=== PATIENT | male | born 1935 | race Caucasian/White ===

== ENCOUNTER 2018-02-28 08:52 | Emergency (ER) | payer MEDICARE, BC ==
[~2018-02-28] VITALS: Ht 182.9 cm; Wt 100.0 kg
[~2018-02-28 08:52] MED LIST: ASPI-611; OMEP-84 PO
[2018-02-28] MEDS ORDERED: HYDROmorphone 1 mg/ml syringe IM ONE ×2 (10:30→11:25)
[2018-02-28] MEDS ORDERED: ondansetron 4mg rapidly disintigrating tab PO ONE (10:30)
[2018-02-28] MEDS ORDERED: ketorolac trometh inj. 60 MG/2 ML VIAL IM ONE (10:35)
[2018-02-28] MEDS ORDERED: CYCL-1 PO (12:45)
[2018-02-28] MEDS ORDERED: HYDR-565 PO (12:45)
[2018-02-28] MEDS ORDERED: diazepam 5mg tablet PO ONE (13:00)
[2018-02-28 13:02] VITALS: BP 130/70
== END 2018-02-28 13:04 | disposition home or self-care (01) ==
LOC: ER 08:53
DX: M54.5 Low back pain (principal); I48.91 Unspecified atrial fibrillation; Z95.0 Presence of cardiac pacemaker; Z96.653 Presence of artificial knee joint, bilateral
CPT/HCPCS: 96372; 99284; J1170; J1885

== ENCOUNTER 2019-01-17 14:45 | Inpatient (IN) | payer MEDICARE, BC ==
[~2019-01-17] VITALS: Ht 182.9 cm; Wt 97.0 kg
[~2019-01-17 14:45] MED LIST changes: +CYCL-1 PO
[2019-01-17 15:27] LABS: BASOPHILS % (AUTO) 0.4 % (0-1); EOSINOPHILS # (AUTO) 0.3 X10'3 (0-0.9); EOSINOPHILS % (AUTO) 3.4 % (0-6); HEMATOCRIT 43.1 % (42.0-52.0); HEMOGLOBIN 14.5 g/dl (14.0-17.9); LYMPHOCYTES # (AUTO) 1.2 X10'3 (1.1-4.8); LYMPHOCYTES % (AUTO) 15.6 % (21-51); MEAN CORPUSCULAR HEMOGLOBIN 31.5 PG (27.0-31.0); MEAN CORPUSCULAR HGB CONC 33.7 g/dL (33.0-36.5); MEAN CORPUSCULAR VOLUME 93.7 FL (78-98); MEAN PLATELET VOLUME 8.5 FL (7.4-10.4); MONOCYTES # (AUTO) 0.8 X10'3 (0-0.9); MONOCYTES % (AUTO) 10.4 % (2-12); NEUTROPHILS # (AUTO) 5.3 X10'3 (1.8-7.7); NEUTROPHILS % (AUTO) 70.2 % (42-75); PLATELET COUNT 196 X10'3 (140-440); RED CELL DISTRIBUTION WIDTH 13.3 % (11.5-14.5); WHITE BLOOD COUNT 7.5 X10'3 (4.5-11.0)
[2019-01-17] MEDS ORDERED: nitroGLYCERIN 1gm ointment UD TP ONE (15:30)
[2019-01-17 15:43] LABS: ALANINE AMINOTRANSFERASE 19 U/L (12-78); ALBUMIN 3.3 G/DL (3.4-5.0); ALBUMIN/GLOBULIN RATIO 0.9 (1.1-1.5); ALKALINE PHOSPHATASE 86 IU/L (46-116); ANION GAP 8 (8-16); ASPARTATE AMINO TRANSFERASE 15 U/L (10-37); BILIRUBIN,TOTAL 0.7 MG/DL (0.1-1.0); BLOOD UREA NITROGEN 23 MG/DL (7-18); BUN/CREATININE RATIO 18.5 (5.4-32.0); CHLORIDE 106 MMOL/L (99-107); CREATININE 1.24 MG/DL (0.60-1.10); GLUCOSE 116 MG/DL (70-104); POTASSIUM 4.1 MMOL/L (3.5-5.1); SODIUM 140 MMOL/L (135-145); TOTAL CARBON DIOXIDE 25.9 MMOL/L (24-32); TOTAL PROTEIN 6.8 G/DL (6.4-8.2); eGFR 56 ML/MIN
[2019-01-17] MEDS ORDERED: DICL50TA8 PO (16:15)
[2019-01-17] MEDS ORDERED: ROSU5TAB12 PO (16:15)
[2019-01-17] MEDS ORDERED: CALC-159 PO (16:15)
[2019-01-17] MEDS ORDERED: FISH12002 PO (16:15)
[2019-01-17] MEDS ORDERED: WARF7.5T6 PO (16:15)
[2019-01-17] MEDS ORDERED: AMLO5TAB16 PO (16:15)
[2019-01-17] MEDS ORDERED: FURO40TA4 PO (16:15)
[2019-01-17] MEDS ORDERED: CHOL10002 PO (16:15)
[2019-01-17] MEDS ORDERED: ondansetron/PF 4mg/2ml inj IV PRN (17:20)
[2019-01-17] MEDS ORDERED: acetaminophen 325mg tablet PO PRN (17:20)
[2019-01-17] MEDS ORDERED: ipratropium/albuterol 3ml nebule NEB PRN (17:20)
[2019-01-17] MEDS ORDERED: mag hydrox/Alum hydrox/simeth 30ml oral suspension PO PRN (17:20)
[2019-01-17] MEDS ORDERED: HYDROcodone/acetaminophen 5mg/325mg tablet PO PRN (17:20)
[2019-01-17] MEDS ORDERED: docusate sod 100mg capsule PO PRN (17:20)
[2019-01-17] MEDS ORDERED: morphine 2 MG/ML inj. syringe IV PRN ×2 (17:20)
[2019-01-17] MEDS ORDERED: magnesium 4gm in 100ml NS 100 ML IV PRN (17:25)
[2019-01-17] MEDS ORDERED: potassium Cl 20 mEq SR tablet PO PRN ×2 (17:25)
[2019-01-17] MEDS ORDERED: potassium CL 10mEq/100ml bag 100 ML IV PRN (17:25)
--- NOTE | 2019-01-17 18:02 | NUR ---
PT COMPLETED PROCEDURE/ PAIN INCREASE WITH MOVEMENT, MORPHINE ADMINISTERED, X RAY AT BED SIDE HR 78, RR 24.
[2019-01-17] MEDS: HYDROcodone/acetaminophen 10/325mg tab PO PRN ×2 (18:08→22:03)
--- NOTE | 2019-01-17 18:10 | NUR ---
POSITIONED PT IN BED WITH HEAD ALL THE WAY UP AND PILLOW, URINAL PROVIDED, DISCARDED 600 CC CLEAR STRAW URINE.
[2019-01-17 18:31] LABS: GLUCOSE,BODY FLUID 108 MG/DL; TOTAL PROTEIN,BODY FLUID 4.1 G/DL
--- NOTE | 2019-01-17 18:34 | NUR ---
I have received report from Vincent ALICIA in the ED and had the opportunity to ask questions and awaiting arrival of patient to he PCU unit.
--- NOTE | 2019-01-17 18:55 | NUR ---
Patient arrived to the PCU unit at this time into room 3025H with his at bedside with him. He was able to ambulate from the gurney to the bed with standby assistance. He is alert and oriented and able to make his needs known. Vitals are stable. He was shown how to use the call light system. All safety precautions in place. Will continue to monitor.
[2019-01-17 19:00] VITALS: BP 118/78
[2019-01-17 19:20] LABS: BFAPPEAR CLOUDY; BFCOLOR AMBER; BFVOLUME 53 ML
[2019-01-17 19:37] LABS: BF RBC COUNT 8425 /CU MM; BF WBC COUNT 660 /CU MM (0-1000)
[2019-01-17 19:41] LABS: EOSINOPHILS,BODY FLUID 2 %; LYMPHOCYTES,BODY FLUID 66 %; MONOCYTES,BODY FLUID 26 %; NEUTROPHILS,BODY FLUID 6 %
[2019-01-17] MEDS ORDERED: furosemide 10 MG/1 ML 10ml inj IV SCH (20:00)
[2019-01-17] MEDS: calcium carbonate/vitamin D3 tablet PO SCH (20:47)
[2019-01-17] MEDS: furosemide 40mg/4ml inj IV SCH (20:47)
[2019-01-17] MEDS ORDERED: warfarin 7.5mg tablet PO ONE (21:00)
--- NOTE | 2019-01-17 21:00 | NUR ---
Call made to pharmacy regarding patient's Coumadin because patient states that he usually takes his in the morning and already took his dose at home this morning. Pharmacist advised not to give the bedtime dose and current INR was reviewed. It was retimed and will just be given tomorrow night.
[2019-01-17 22:00] VITALS: BP 116/66
[2019-01-18] VITALS (7 sets, daily range): BP systolic 100–119; BP diastolic 50–64
--- NOTE | 2019-01-18 03:09 | NUR ---
Orientee documentation: I have reviewed and agree with all interventions, assessments performed and documented by Marissa ALICIA. Orientee Medication Administration: For this medication-pass time frame, all medication were reviewed, dispensed, administered and documented per hospital policy by Marissa ALICIA.
[2019-01-18 03:54] LABS: BASOPHILS % (AUTO) 0.3 % (0-1); EOSINOPHILS # (AUTO) 0.2 X10'3 (0-0.9); EOSINOPHILS % (AUTO) 2.7 % (0-6); HEMATOCRIT 43.2 % (42.0-52.0); HEMOGLOBIN 14.5 g/dl (14.0-17.9); LYMPHOCYTES # (AUTO) 0.9 X10'3 (1.1-4.8); LYMPHOCYTES % (AUTO) 9.7 % (21-51); MEAN CORPUSCULAR HEMOGLOBIN 31.5 PG (27.0-31.0); MEAN CORPUSCULAR HGB CONC 33.4 g/dL (33.0-36.5); MEAN CORPUSCULAR VOLUME 94.3 FL (78-98); MEAN PLATELET VOLUME 9.2 FL (7.4-10.4); MONOCYTES # (AUTO) 0.9 X10'3 (0-0.9); MONOCYTES % (AUTO) 9.7 % (2-12); NEUTROPHILS # (AUTO) 6.9 X10'3 (1.8-7.7); NEUTROPHILS % (AUTO) 77.6 % (42-75); PLATELET COUNT 190 X10'3 (140-440); RED BLOOD COUNT 4.59 X10'6 (4.70-6.10); RED CELL DISTRIBUTION WIDTH 13.4 % (11.5-14.5); WHITE BLOOD COUNT 8.8 X10'3 (4.5-11.0)
[2019-01-18 04:07] LABS: ALANINE AMINOTRANSFERASE 17 U/L (12-78); ALKALINE PHOSPHATASE 77 IU/L (46-116); ANION GAP 5 (8-16); ASPARTATE AMINO TRANSFERASE 16 U/L (10-37); BILIRUBIN,TOTAL 0.7 MG/DL (0.1-1.0); BLOOD UREA NITROGEN 24 MG/DL (7-18); BUN/CREATININE RATIO 17.3 (5.4-32.0); CALCIUM 8.3 MG/DL (8.5-10.1); CHLORIDE 103 MMOL/L (99-107); CREATININE 1.39 MG/DL (0.60-1.10); GLUCOSE 117 MG/DL (70-104); POTASSIUM 3.8 MMOL/L (3.5-5.1); SODIUM 140 MMOL/L (135-145); TOTAL PROTEIN 6.1 G/DL (6.4-8.2); eGFR 49 ML/MIN
[2019-01-18 04:09] LABS: CHOL/HDL RATIO 2.1 (0.00-4.99); CHOLESTEROL 105 MG/DL (0-200); HDL CHOLESTEROL 51 MG/DL (35-60); LDL CHOLESTEROL 38 MG/DL (50-100); MAGNESIUM 1.7 MG/DL (1.5-2.4); TRIGLYCERIDES 105 MG/DL (20-135)
[2019-01-18] MEDS: HYDROcodone/acetaminophen 10/325mg tab PO PRN ×2 (05:41→12:35)
--- NOTE | 2019-01-18 06:21 | NUR ---
Problems reprioritized. Patient report given, questions answered & plan of care reviewed with Ysabel ALICIA and Ruel ALICIA.
--- NOTE | 2019-01-18 06:35 | NUR ---
Patient in room PCU 3027. I have received report from Sandra ALICIA and had the opportunity to ask questions and assume patient care. Patient awake in bed with no complaints at this time. All immediate needs met.
--- NOTE | 2019-01-18 06:39 | NUR ---
Patient in room PCU 3027. I have received report from Sandra ALICIA and had the opportunity to ask questions and assume patient care.
[2019-01-18] MEDS ORDERED: non-formulary drug (Fish Oil/Borage/Flax/Om3,6,9#1 (Omega 3-6-9 1,200 mg Softgel) 1 CAP) PO SCH (08:00)
[2019-01-18] MEDS: furosemide 40mg/4ml inj IV SCH ×2 (08:08→19:14)
[2019-01-18] MEDS: pantoprazole 40mg Tablet.DR PO SCH (08:08)
[2019-01-18] MEDS: atorvastatin 20mg tablet PO SCH (08:09)
[2019-01-18] MEDS: vitamin D (cholecalciferol) 1,000 unit tablet PO SCH (08:09)
[2019-01-18] MEDS: calcium carbonate/vitamin D3 tablet PO SCH ×2 (08:09→19:14)
[2019-01-18] MEDS ORDERED: pneumococcal 23-VAL P-sac vacc 25 mcg/0.5ml vial IMVAC ONE (10:00)
--- NOTE | 2019-01-18 10:57 | NUR ---
WOUND INFECTION EDUCATION PROVIDED BY WOUND CARE 1. Patient instructed to call their primary doctor, or go the ED immediately if any of the following symptoms occur: * Increased pain in wound * Increase in drainage from the wound * Redness in the skin surrounding the wound * Warmth in the skin surrounding the wound * Bleeding from the wound * Temperature of 101 or greater 2. If any of these occur while in the hospital tell a nurse immediately. Addendum: 01/18/19 at 1057 by Giana Charles RN Amended: Links added.
--- NOTE | 2019-01-18 18:42 | NUR ---
Patient in room PCU 3027. I have received report from Ysabel ALICIA and had the opportunity to ask questions and assume patient care.
--- NOTE | 2019-01-18 18:42 | NUR ---
Problems reprioritized. Patient report given, questions answered & plan of care reviewed with Carmelina/Marissa RN. Patient stable at transfer of care.
[2019-01-19 02:00] VITALS: BP 116/61
--- NOTE | 2019-01-19 06:12 | NUR ---
Orientee documentation: I have reviewed and agree with all interventions, assessments performed and documented by Marissa ALICIA . Medication Administration: For this medication-pass time frame, all medication were reviewed, dispensed, administered and documented per hospital policy by Marissa ALICIA .
--- NOTE | 2019-01-19 06:16 | NUR ---
Problems reprioritized. Patient report given, questions answered & plan of care reviewed with Ruel ALICIA and Ysabel ALICIA.
[2019-01-19 06:30] LABS: ALANINE AMINOTRANSFERASE 16 U/L (12-78); ALBUMIN 2.8 G/DL (3.4-5.0); ALBUMIN/GLOBULIN RATIO 0.8 (1.1-1.5); ALKALINE PHOSPHATASE 69 IU/L (46-116); ANION GAP 6 (8-16); ASPARTATE AMINO TRANSFERASE 14 U/L (10-37); BASOPHILS % (AUTO) 0.3 % (0-1); BILIRUBIN,TOTAL 1.1 MG/DL (0.1-1.0); BLOOD UREA NITROGEN 23 MG/DL (7-18); BUN/CREATININE RATIO 17.7 (5.4-32.0); CALCIUM 8.4 MG/DL (8.5-10.1); CHLORIDE 101 MMOL/L (99-107); EOSINOPHILS # (AUTO) 0.4 X10'3 (0-0.9); EOSINOPHILS % (AUTO) 3.9 % (0-6); GLUCOSE 121 MG/DL (70-104); HEMATOCRIT 43.8 % (42.0-52.0); HEMOGLOBIN 14.9 g/dl (14.0-17.9); LYMPHOCYTES # (AUTO) 1.1 X10'3 (1.1-4.8); LYMPHOCYTES % (AUTO) 11.6 % (21-51); MAGNESIUM 1.7 MG/DL (1.5-2.4); MEAN CORPUSCULAR HEMOGLOBIN 31.5 PG (27.0-31.0); MEAN CORPUSCULAR VOLUME 92.5 FL (78-98); MEAN PLATELET VOLUME 9.1 FL (7.4-10.4); MONOCYTES % (AUTO) 10.2 % (2-12); PLATELET COUNT 208 X10'3 (140-440); POTASSIUM 3.5 MMOL/L (3.5-5.1); RED BLOOD COUNT 4.74 X10'6 (4.70-6.10); RED CELL DISTRIBUTION WIDTH 13.3 % (11.5-14.5); SODIUM 137 MMOL/L (135-145); TOTAL CARBON DIOXIDE 29.9 MMOL/L (24-32); TOTAL PROTEIN 6.2 G/DL (6.4-8.2); WHITE BLOOD COUNT 9.4 X10'3 (4.5-11.0); eGFR 53 ML/MIN
--- NOTE | 2019-01-19 06:30 | NUR ---
Patient in room PCU 3027. I have received report from Chanda RN and Marissa RN and had the opportunity to ask questions and assume patient care.
[2019-01-19 07:00] VITALS: BP 116/63
[2019-01-19] MEDS ORDERED: furosemide 40mg/4ml inj IV SCH (08:00)
[2019-01-19] MEDS: pantoprazole 40mg Tablet.DR PO SCH (08:17)
[2019-01-19] MEDS: atorvastatin 20mg tablet PO SCH (08:17)
[2019-01-19] MEDS: calcium carbonate/vitamin D3 tablet PO SCH (08:17)
[2019-01-19] MEDS: vitamin D (cholecalciferol) 1,000 unit tablet PO SCH (08:17)
[2019-01-19] MEDS ORDERED: amox tr/potassium clavulanate 875/125mg TAB PO SCH (08:30)
[2019-01-19] MEDS ORDERED: POTA20TA10 PO (10:19)
[2019-01-19 11:00] VITALS: BP 125/69
--- NOTE | 2019-01-19 13:05 | NUR ---
V/S 125/69, 91%, 18, 64, 97.7 Stable for discharge per MD orders. Discharge instructions given to patient and ; all inquiries answered. New prescriptions delivered to bedside through [facility]. Wound photos re-taken prior to discharge. PIV discontinued; cannula intact. Telemetry monitoring discontinued. All belongings including home meds sent home with patient. Assisted to private vehicle via wheelchair accompanied by .
== END 2019-01-19 13:05 | disposition home or self-care (01) | DRG 291 ==
LOC: ER 14:46 → PCU 3S 18:50 → CMPBEDREQ 19:42
PROVIDERS: ADMIT Family Medicine; ATTEND Family Medicine
PROC: 0W9B3ZZ Drainage of Left Pleural Cavity, Percutaneous Approach (ICD-10-PCS; principal; 2019-01-17)
PROC: 3E0234Z Introduction of Serum, Toxoid and Vaccine into Muscle, Percutaneous Approach (ICD-10-PCS; 2019-01-18)
DX: I50.31 Acute diastolic (congestive) heart failure (principal); N17.0 Acute kidney failure with tubular necrosis; J91.8 Pleural effusion in other conditions classified elsewhere; I48.91 Unspecified atrial fibrillation; Z96.653 Presence of artificial knee joint, bilateral; Z96.619 Presence of unspecified artificial shoulder joint; N18.3 Chronic kidney disease, stage 3 (moderate); R91.8 Other nonspecific abnormal finding of lung field; Z23 Encounter for immunization; Z79.01 Long term (current) use of anticoagulants; Z80.0 Family history of malignant neoplasm of digestive organs; Z87.891 Personal history of nicotine dependence; Z95.0 Presence of cardiac pacemaker; Z98.1 Arthrodesis status; Z79.899 Other long term (current) drug therapy
CPT/HCPCS: 32555; 36415; 71045; 71046; 71250; 80053; 80061; 82945; 82948; 83605; 83735; 83880; 84157; 84484; 85025; 85610; 87040; 87070; 87081; 89051; 90732; 93005; 93306; 94760; 96374; 99285; G0378; J1940; J2270

== ENCOUNTER 2019-01-27 07:26 | Inpatient (IN) | payer MEDICARE, BC ==
[~2019-01-27] VITALS: Ht 182.9 cm; Wt 90.9 kg
[~2019-01-27 07:26] MED LIST changes: +AMLO5TAB16 PO; -ASPI-611; +CALC-159 PO; +CHOL10002 PO; -CYCL-1 PO; +FISH12002 PO; +FURO40TA4 PO; +POTA20TA10 PO; +ROSU5TAB12 PO; +WARF7.5T6 PO
--- NOTE | 2019-01-27 07:59 | NUR ---
PT STATES HE HAS HAD A COUGH WITH YELLOW SPUTUM STRTING AFTER PLURACENTSIS 01/17
[2019-01-27] MEDS ORDERED: HYDROcodone/acetaminophen 10/325mg tab PO ONE (08:10)
[2019-01-27 08:34] LABS: BASOPHILS % (AUTO) 0.4 % (0-1); EOSINOPHILS # (AUTO) 0.4 X10'3 (0-0.9); HEMATOCRIT 44.2 % (42.0-52.0); HEMOGLOBIN 14.8 g/dl (14.0-17.9); MEAN CORPUSCULAR HEMOGLOBIN 31.3 PG (27.0-31.0); MEAN CORPUSCULAR HGB CONC 33.4 g/dL (33.0-36.5); MEAN CORPUSCULAR VOLUME 93.6 FL (78-98); MEAN PLATELET VOLUME 8.9 FL (7.4-10.4); MONOCYTES # (AUTO) 1.3 X10'3 (0-0.9); MONOCYTES % (AUTO) 10.9 % (2-12); NEUTROPHILS # (AUTO) 9.3 X10'3 (1.8-7.7); NEUTROPHILS % (AUTO) 77.7 % (42-75); PLATELET COUNT 171 X10'3 (140-440); RED BLOOD COUNT 4.73 X10'6 (4.70-6.10); RED CELL DISTRIBUTION WIDTH 13.2 % (11.5-14.5)
[2019-01-27 08:40] LABS: CLARITY,URINE CLEAR (Clear); GLUCOSE, URINE NEGATIVE (Neg); KETONES,URINE NEGATIVE (Neg); LEUKOCYTE ESTERASE ,URINE NEGATIVE (Neg); NITRITES, URINE NEGATIVE (Neg); OCCULT BLOOD,URINE TRACE-INTACT (Neg); PH,URINE 5.5 (4.8-8.0); PROTEIN,URINE NEGATIVE (Neg); UROBILINOGEN,URINE 0.2 E.U/dL (0.2-1.0)
[2019-01-27 08:43] LABS: COLOR,URINE STRAW (Yellow); UA COLLECTION TYPE CLN CATCH MIDSTREAM
[2019-01-27 08:46] LABS: BACTERIA,URINE NONE SEEN /HPF (Neg); MUCUS STRANDS NONE SEEN /LPF (Neg); RBC,URINE 0-2 /HPF (0-2); SQUAMOUS EPITHELIAL CELL,UR NONE SEEN /LPF (FEW); WBC,URINE NONE SEEN /HPF (0-4)
[2019-01-27 08:54] LABS: ALANINE AMINOTRANSFERASE 18 U/L (12-78); ALBUMIN/GLOBULIN RATIO 0.8 (1.1-1.5); ALKALINE PHOSPHATASE 80 IU/L (46-116); ANION GAP 5 (8-16); ASPARTATE AMINO TRANSFERASE 11 U/L (10-37); BILIRUBIN,TOTAL 0.8 MG/DL (0.1-1.0); BLOOD UREA NITROGEN 20 MG/DL (7-18); BUN/CREATININE RATIO 13.5 (5.4-32.0); CALCIUM 8.6 MG/DL (8.5-10.1); CHLORIDE 99 MMOL/L (99-107); CREATININE 1.48 MG/DL (0.60-1.10); GLUCOSE 119 MG/DL (70-104); POTASSIUM 4.5 MMOL/L (3.5-5.1); SODIUM 134 MMOL/L (135-145); TOTAL CARBON DIOXIDE 29.9 MMOL/L (24-32); eGFR 46 ML/MIN
--- NOTE | 2019-01-27 09:22 | NUR ---
PATIENT TO RADIOLOGY.
--- NOTE | 2019-01-27 09:36 | NUR ---
CALL PLACED TO LAB RE PT/INR. THEY ARE NOT ABLE TO FIND THE BLUE TOP BLOOD VILE TO RUN THE TEST. BRENDA FROM LAB AT TO RE DRAW. LINDA NOTIFIED
--- NOTE | 2019-01-27 10:54 | NUR ---
patient desats with RA 85-86%,denies chest pain.Arron ABBOTT at bedside.
[2019-01-27] MEDS ORDERED: BUDE10.2 INH (11:34)
[2019-01-27] MEDS ORDERED: COU7.5T PO (12:16)
[2019-01-27] MEDS ORDERED: heparin 10,000 units/1 ML INJ IV PRN (12:35)
[2019-01-27] MEDS ORDERED: acetaminophen 325mg tablet PO PRN ×2 (12:35)
[2019-01-27] MEDS ORDERED: heparin 10,000 units/1 ML INJ IV ONE (12:35)
[2019-01-27] MEDS ORDERED: magnesium 2GM in 50ml NS 50 ML IV PRN (12:35)
[2019-01-27] MEDS ORDERED: potassium Cl 20 mEq SR tablet PO PRN ×2 (12:35)
[2019-01-27] MEDS ORDERED: magnesium Cl slow-release 64mg tablet PO PRN (12:35)
[2019-01-27] MEDS ORDERED: morphine 2 MG/ML inj. syringe IV PRN (12:35)
[2019-01-27] MEDS ORDERED: potassium CL 10mEq/100ml bag 100 ML IV PRN ×2 (12:35)
[2019-01-27] MEDS ORDERED: magnesium 4gm in 100ml NS 100 ML IV PRN (12:35)
[2019-01-27] MEDS ORDERED: ondansetron/PF 4mg/2ml inj IV PRN (12:35)
[2019-01-27] MEDS ORDERED: iohexol 350MG/ML 100ml bottle IV ONE (12:46)
--- NOTE | 2019-01-27 13:01 | NUR ---
pt to ct.
[2019-01-27] MEDS: heparin 25,000 UNIT/250ml bag 250 ML IV SCH ×2 (13:14→23:43)
[2019-01-27] MEDS: normal saline 1000ml 1,000 ML IV SCH (13:19)
--- NOTE | 2019-01-27 13:33 | NUR ---
Patient in room . I have received report from Ravi ALICIA in ED and had the opportunity to ask questions and assume patient care.
[2019-01-27] MEDS: HYDROcodone/acetaminophen 5mg/325mg tablet PO PRN ×2 (13:35→21:13)
--- NOTE | 2019-01-27 13:50 | NUR ---
Pt arrived on the floor, alert & oriented
[2019-01-27 14:27] VITALS: BP 118/65
[2019-01-27] MEDS: albuterol 2.5 MG/3 ML nebule NEB SCH ×2 (15:00→21:05)
[2019-01-27] MEDS ORDERED: LIDOcaine 1%/PF 5ML 10 MG/ML VIAL SQ ONE (15:05)
[2019-01-27] MEDS ORDERED: fentaNYL/PF 50MCG/1 ML 2ML syringe IV PRN (15:05)
[2019-01-27] MEDS ORDERED: LIDOcaine 1%/PF 5ML 10 MG/ML VIAL ONE (15:18)
[2019-01-27] MEDS ORDERED: heparin 1,000 UNITS/NS 500ml 500 ML ONE (15:18)
[2019-01-27] MEDS ORDERED: fentaNYL/PF 50MCG/1 ML 2ML syringe ONE ×2 (15:18→15:45)
[2019-01-27] MEDS ORDERED: iohexol 300 MG/1 ML 50ml polymer ONE (15:18)
--- NOTE | 2019-01-27 15:20 | NUR ---
Pt taken to IR for IVC filter placement
--- NOTE | 2019-01-27 16:20 | NUR ---
Pt returned to floor, right IJ punctured, pt is alert and oriented, no c/o pain at this time
[2019-01-27 18:00] VITALS: BP 135/69
--- NOTE | 2019-01-27 18:12 | NUR ---
Problems reprioritized. Patient report given, questions answered & plan of care reviewed with Zane Nails RN.
--- NOTE | 2019-01-27 19:00 | NUR ---
Patient in room ORTHO 4022. I have received report from Suzanne ALICIA and had the opportunity to ask questions and assume patient care.
[2019-01-27] MEDS: budesonide 0.5mg/2ml UD nebule IH SCH (21:05)
[2019-01-27] MEDS: docusate sod 100mg capsule PO SCH (21:12)
[2019-01-27] MEDS: temazepam 15mg capsule PO PRN (21:13)
--- NOTE | 2019-01-27 21:40 | NUR ---
I stopped the Heparin drip at this time due to elevated DVT Ptt of>150 and will restart it in 2 hours. A new Dvt Ptt will also be ordered per protocol.
[2019-01-27 22:00] VITALS: BP 133/58
[2019-01-28 02:00] VITALS: BP 111/61
[2019-01-28] MEDS: HYDROcodone/acetaminophen 5mg/325mg tablet PO PRN ×2 (02:09→12:52)
[2019-01-28] MEDS: albuterol 2.5 MG/3 ML nebule NEB SCH ×4 (02:44→20:26)
--- NOTE | 2019-01-28 03:43 | NUR ---
Heparin drip stopped per protocol since the dvt ptt is 108 and it will be restarted in 2 hours and also decreased as per protocol. Dvt PTT has been ordered for 0740, two hours after the heparin drip will be restarted.
[2019-01-28] MEDS: heparin 25,000 UNIT/250ml bag 250 ML IV SCH ×2 (05:42→11:52)
[2019-01-28 06:00] VITALS: BP 94/52
--- NOTE | 2019-01-28 06:35 | NUR ---
Patient in room ORTHO 4022. I have received report from Zane Nails RN and had the opportunity to ask questions and assume patient care.
[2019-01-28] MEDS: pantoprazole 40mg Tablet.DR PO SCH (07:52)
[2019-01-28] MEDS: docusate sod 100mg capsule PO SCH ×2 (07:54→20:27)
[2019-01-28] MEDS: atorvastatin 20mg tablet PO SCH (07:55)
[2019-01-28] MEDS: amLODIPine 5mg tablet PO SCH (07:55)
[2019-01-28 07:59] LABS: BASOPHILS % (AUTO) 0.3 % (0-1); EOSINOPHILS # (AUTO) 0.5 X10'3 (0-0.9); HEMATOCRIT 38.2 % (42.0-52.0); HEMOGLOBIN 13.1 g/dl (14.0-17.9); LYMPHOCYTES % (AUTO) 10.6 % (21-51); MEAN CORPUSCULAR HEMOGLOBIN 31.7 PG (27.0-31.0); MEAN CORPUSCULAR HGB CONC 34.2 g/dL (33.0-36.5); MEAN CORPUSCULAR VOLUME 92.6 FL (78-98); MEAN PLATELET VOLUME 8.4 FL (7.4-10.4); MONOCYTES # (AUTO) 0.9 X10'3 (0-0.9); MONOCYTES % (AUTO) 10.4 % (2-12); NEUTROPHILS # (AUTO) 6.7 X10'3 (1.8-7.7); NEUTROPHILS % (AUTO) 73.7 % (42-75); PLATELET COUNT 172 X10'3 (140-440); RED BLOOD COUNT 4.13 X10'6 (4.70-6.10)
[2019-01-28] MEDS ORDERED: non-formulary drug (Omeprazole* (Prilosec*) 20 MG) PO SCH (08:00)
[2019-01-28] MEDS ORDERED: non-formulary drug (Budesonide/Formoterol Fumarate (Symbicort 160-4.5 Mcg Inhaler) 1 PUFF) INH SCH (08:00)
[2019-01-28] MEDS: K and/or MAG REPLACEMENT MC SCH (08:00)
[2019-01-28] MEDS ORDERED: non-formulary drug (Rosuvastatin Calcium 1 TAB) PO SCH (08:00)
[2019-01-28 08:07] LABS: ALANINE AMINOTRANSFERASE 14 U/L (12-78); ALBUMIN 2.5 G/DL (3.4-5.0); ALBUMIN/GLOBULIN RATIO 0.7 (1.1-1.5); ALKALINE PHOSPHATASE 68 IU/L (46-116); ANION GAP 9 (8-16); ASPARTATE AMINO TRANSFERASE 14 U/L (10-37); BILIRUBIN,TOTAL 0.7 MG/DL (0.1-1.0); BLOOD UREA NITROGEN 17 MG/DL (7-18); BUN/CREATININE RATIO 10.8 (5.4-32.0); CHLORIDE 100 MMOL/L (99-107); CREATININE 1.58 MG/DL (0.60-1.10); GLUCOSE 119 MG/DL (70-104); MAGNESIUM 1.8 MG/DL (1.5-2.4); POTASSIUM 3.8 MMOL/L (3.5-5.1); SODIUM 138 MMOL/L (135-145); TOTAL CARBON DIOXIDE 29.1 MMOL/L (24-32); TOTAL PROTEIN 5.9 G/DL (6.4-8.2); eGFR 42 ML/MIN
[2019-01-28] MEDS: budesonide 0.5mg/2ml UD nebule IH SCH ×2 (08:14→20:27)
[2019-01-28] MEDS: normal saline 1000ml 1,000 ML IV SCH (09:15)
[2019-01-28 10:00] VITALS: BP 97/51
--- NOTE | 2019-01-28 17:08 | NUR ---
PAGER ID: [phone] MESSAGE: Moody Esparza, Mr. Garcia in [id number], family is here and wish to speak with you. Also, can we renew the 24 hour tele? please advise Thank you Suzanne
[2019-01-28 18:00] VITALS: BP 105/58
[2019-01-28] MEDS: HYDROcodone/acetaminophen 10/325mg tab PO PRN (18:03)
[2019-01-28] MEDS: morphine 2 MG/ML inj. syringe IV PRN (20:28)
--- NOTE | 2019-01-28 21:06 | NUR ---
Continued care of pt
[2019-01-28 22:28] VITALS: BP 107/58
--- NOTE | 2019-01-28 23:45 | NUR ---
Received report from Suzanne Santiago RN at this time and assumed care of patient.
--- NOTE | 2019-01-29 | NUR ---
Problems reprioritized. Patient report given, questions answered & plan of care reviewed with Gifty ALICIA.
[2019-01-29] MEDS: HYDROcodone/acetaminophen 10/325mg tab PO PRN ×4 (00:15→21:05)
--- NOTE | 2019-01-29 00:30 | NUR ---
I agree with Suzanne ALICIA's assessment except the documentation of continuous pulse oximetry reading 64% on 2 liters oxygen around the 2039 time. I called the Tele monitor and the lowest oxygen saturation was in the mid to high 80% for the shift so far.
[2019-01-29] MEDS: albuterol 2.5 MG/3 ML nebule NEB SCH ×4 (02:04→20:10)
[2019-01-29] MEDS: morphine 2 MG/ML inj. syringe IV PRN (02:09)
[2019-01-29 03:05] LABS: BASOPHILS % (AUTO) 0.3 % (0-1); EOSINOPHILS # (AUTO) 0.4 X10'3 (0-0.9); EOSINOPHILS % (AUTO) 4.2 % (0-6); HEMATOCRIT 37.3 % (42.0-52.0); HEMOGLOBIN 12.8 g/dl (14.0-17.9); LYMPHOCYTES % (AUTO) 10.1 % (21-51); MEAN CORPUSCULAR HEMOGLOBIN 31.6 PG (27.0-31.0); MEAN CORPUSCULAR HGB CONC 34.3 g/dL (33.0-36.5); MEAN CORPUSCULAR VOLUME 92.2 FL (78-98); MEAN PLATELET VOLUME 8.5 FL (7.4-10.4); MONOCYTES # (AUTO) 0.9 X10'3 (0-0.9); MONOCYTES % (AUTO) 9.5 % (2-12); NEUTROPHILS # (AUTO) 7.5 X10'3 (1.8-7.7); NEUTROPHILS % (AUTO) 75.9 % (42-75); PLATELET COUNT 202 X10'3 (140-440); RED BLOOD COUNT 4.04 X10'6 (4.70-6.10); RED CELL DISTRIBUTION WIDTH 12.9 % (11.5-14.5); WHITE BLOOD COUNT 9.9 X10'3 (4.5-11.0)
[2019-01-29 03:15] LABS: ALANINE AMINOTRANSFERASE 15 U/L (12-78); ALBUMIN 2.5 G/DL (3.4-5.0); ALBUMIN/GLOBULIN RATIO 0.7 (1.1-1.5); ALKALINE PHOSPHATASE 69 IU/L (46-116); ANION GAP 8 (8-16); ASPARTATE AMINO TRANSFERASE 14 U/L (10-37); BILIRUBIN,TOTAL 0.6 MG/DL (0.1-1.0); BLOOD UREA NITROGEN 15 MG/DL (7-18); CHLORIDE 102 MMOL/L (99-107); CREATININE 1.36 MG/DL (0.60-1.10); GLUCOSE 132 MG/DL (70-104); MAGNESIUM 1.8 MG/DL (1.5-2.4); POTASSIUM 3.9 MMOL/L (3.5-5.1); SODIUM 136 MMOL/L (135-145); TOTAL CARBON DIOXIDE 26.5 MMOL/L (24-32); TOTAL PROTEIN 5.9 G/DL (6.4-8.2); eGFR 50 ML/MIN
--- NOTE | 2019-01-29 04:12 | NUR ---
Dvt PTT is 67 so no change in the heparin gtt rate. I ordered another Dvt ptt at 0840 in the am of 01/29.
[2019-01-29 06:00] VITALS: BP 105/52
--- NOTE | 2019-01-29 06:02 | NUR ---
Problems reprioritized. Patient report given, questions answered & plan of care reviewed with Mary ALICIA.
[2019-01-29] MEDS: K and/or MAG REPLACEMENT MC SCH (08:00)
[2019-01-29] MEDS: pantoprazole 40mg Tablet.DR PO SCH (08:13)
[2019-01-29] MEDS: docusate sod 100mg capsule PO SCH ×2 (08:13→20:02)
[2019-01-29] MEDS: atorvastatin 20mg tablet PO SCH (08:14)
[2019-01-29] MEDS: amLODIPine 5mg tablet PO SCH (08:18)
[2019-01-29] MEDS: heparin 25,000 UNIT/250ml bag 250 ML IV SCH ×2 (08:20→23:05)
[2019-01-29] MEDS: budesonide 0.5mg/2ml UD nebule IH SCH ×2 (08:56→20:11)
[2019-01-29 10:00] VITALS: BP 112/61
[2019-01-29 18:00] VITALS: BP 107/63
--- NOTE | 2019-01-29 18:41 | NUR ---
Problems reprioritized. Patient report given, questions answered & plan of care reviewed with MARAL Singleton.
[2019-01-29] MEDS: temazepam 15mg capsule PO PRN (21:00)
[2019-01-29 22:00] VITALS: BP 136/74
[2019-01-30] MEDS: HYDROcodone/acetaminophen 10/325mg tab PO PRN ×4 (01:20→21:12)
[2019-01-30] MEDS: albuterol 2.5 MG/3 ML nebule NEB SCH ×4 (02:22→20:20)
[2019-01-30 06:00] VITALS: BP 102/49
--- NOTE | 2019-01-30 06:21 | NUR ---
Problems reprioritized. Patient report given, questions answered & plan of care reviewed with MARAL HAWKINS.
[2019-01-30 06:52] LABS: BASOPHILS % (AUTO) 0.4 % (0-1); EOSINOPHILS # (AUTO) 0.5 X10'3 (0-0.9); EOSINOPHILS % (AUTO) 6.2 % (0-6); HEMATOCRIT 38.8 % (42.0-52.0); HEMOGLOBIN 12.7 g/dl (14.0-17.9); LYMPHOCYTES # (AUTO) 1.1 X10'3 (1.1-4.8); LYMPHOCYTES % (AUTO) 13.2 % (21-51); MEAN CORPUSCULAR HGB CONC 32.6 g/dL (33.0-36.5); MEAN PLATELET VOLUME 8.9 FL (7.4-10.4); MONOCYTES # (AUTO) 0.8 X10'3 (0-0.9); MONOCYTES % (AUTO) 9.9 % (2-12); NEUTROPHILS # (AUTO) 5.7 X10'3 (1.8-7.7); NEUTROPHILS % (AUTO) 70.3 % (42-75); PLATELET COUNT 262 X10'3 (140-440); RED BLOOD COUNT 4.09 X10'6 (4.70-6.10); RED CELL DISTRIBUTION WIDTH 13.5 % (11.5-14.5); WHITE BLOOD COUNT 8.2 X10'3 (4.5-11.0)
[2019-01-30] MEDS: morphine 2 MG/ML inj. syringe IV PRN (07:00)
[2019-01-30 07:04] LABS: ALANINE AMINOTRANSFERASE 17 U/L (12-78); ALBUMIN 2.5 G/DL (3.4-5.0); ALBUMIN/GLOBULIN RATIO 0.6 (1.1-1.5); ALKALINE PHOSPHATASE 74 IU/L (46-116); ANION GAP 8 (8-16); ASPARTATE AMINO TRANSFERASE 18 U/L (10-37); BILIRUBIN,TOTAL 0.6 MG/DL (0.1-1.0); BLOOD UREA NITROGEN 14 MG/DL (7-18); BUN/CREATININE RATIO 9.6 (5.4-32.0); CALCIUM 8.8 MG/DL (8.5-10.1); CHLORIDE 103 MMOL/L (99-107); CREATININE 1.46 MG/DL (0.60-1.10); GLUCOSE 115 MG/DL (70-104); MAGNESIUM 2.1 MG/DL (1.5-2.4); POTASSIUM 4.4 MMOL/L (3.5-5.1); SODIUM 140 MMOL/L (135-145); TOTAL CARBON DIOXIDE 29.3 MMOL/L (24-32); TOTAL PROTEIN 6.4 G/DL (6.4-8.2); eGFR 46 ML/MIN
[2019-01-30] MEDS: pantoprazole 40mg Tablet.DR PO SCH (07:04)
[2019-01-30] MEDS: K and/or MAG REPLACEMENT MC SCH (08:00)
[2019-01-30] MEDS: budesonide 0.5mg/2ml UD nebule IH SCH ×2 (09:26→20:20)
[2019-01-30] MEDS: amLODIPine 5mg tablet PO SCH (09:36)
[2019-01-30] MEDS: docusate sod 100mg capsule PO SCH ×2 (09:36→21:12)
[2019-01-30] MEDS: atorvastatin 20mg tablet PO SCH (09:37)
[2019-01-30 10:00] VITALS: BP 121/79
[2019-01-30] MEDS: heparin 25,000 UNIT/250ml bag 250 ML IV SCH ×2 (10:07→23:58)
[2019-01-30 18:00] VITALS: BP 130/68
--- NOTE | 2019-01-30 18:28 | NUR ---
Problems reprioritized. Patient report given, questions answered & plan of care reviewed with MARAL Singleton.
--- NOTE | 2019-01-30 18:30 | NUR ---
Patient in room ORTHO 4022. I have received report from MARAL HAWKINS and had the opportunity to ask questions and assume patient care.
[2019-01-30 22:00] VITALS: BP 119/57
--- NOTE | 2019-01-30 23:47 | NUR ---
PTT 62. NO RATE CHANGE AT THIS TIME. RUNNING AT 1000U/HR
[2019-01-31] MEDS: HYDROcodone/acetaminophen 10/325mg tab PO PRN ×4 (02:08→22:07)
[2019-01-31] MEDS: albuterol 2.5 MG/3 ML nebule NEB SCH ×4 (03:00→20:58)
[2019-01-31 06:00] VITALS: BP 107/59
[2019-01-31 06:30] LABS: BASOPHILS % (AUTO) 0.4 % (0-1); EOSINOPHILS # (AUTO) 0.5 X10'3 (0-0.9); EOSINOPHILS % (AUTO) 6.7 % (0-6); HEMATOCRIT 35.3 % (42.0-52.0); HEMOGLOBIN 11.8 g/dl (14.0-17.9); LYMPHOCYTES % (AUTO) 12.2 % (21-51); MEAN CORPUSCULAR HEMOGLOBIN 31.2 PG (27.0-31.0); MEAN CORPUSCULAR HGB CONC 33.5 g/dL (33.0-36.5); MEAN CORPUSCULAR VOLUME 93.1 FL (78-98); MEAN PLATELET VOLUME 8.4 FL (7.4-10.4); MONOCYTES # (AUTO) 0.7 X10'3 (0-0.9); MONOCYTES % (AUTO) 8.5 % (2-12); NEUTROPHILS # (AUTO) 5.7 X10'3 (1.8-7.7); NEUTROPHILS % (AUTO) 72.2 % (42-75); PLATELET COUNT 267 X10'3 (140-440); RED BLOOD COUNT 3.79 X10'6 (4.70-6.10); RED CELL DISTRIBUTION WIDTH 13.1 % (11.5-14.5); WHITE BLOOD COUNT 7.9 X10'3 (4.5-11.0)
--- NOTE | 2019-01-31 06:33 | NUR ---
Problems reprioritized. Patient report given, questions answered & plan of care reviewed with MARAL HAWKINS.
[2019-01-31 06:35] LABS: ALANINE AMINOTRANSFERASE 19 U/L (12-78); ALBUMIN 2.3 G/DL (3.4-5.0); ALBUMIN/GLOBULIN RATIO 0.6 (1.1-1.5); ALKALINE PHOSPHATASE 68 IU/L (46-116); ANION GAP 8 (8-16); ASPARTATE AMINO TRANSFERASE 22 U/L (10-37); BILIRUBIN,TOTAL 0.5 MG/DL (0.1-1.0); BLOOD UREA NITROGEN 13 MG/DL (7-18); BUN/CREATININE RATIO 10.2 (5.4-32.0); CALCIUM 8.4 MG/DL (8.5-10.1); CHLORIDE 102 MMOL/L (99-107); CREATININE 1.27 MG/DL (0.60-1.10); GLUCOSE 112 MG/DL (70-104); MAGNESIUM 1.9 MG/DL (1.5-2.4); POTASSIUM 4.1 MMOL/L (3.5-5.1); SODIUM 135 MMOL/L (135-145); TOTAL PROTEIN 5.9 G/DL (6.4-8.2); eGFR 54 ML/MIN
[2019-01-31] MEDS: pantoprazole 40mg Tablet.DR PO SCH (07:20)
[2019-01-31] MEDS: docusate sod 100mg capsule PO SCH ×2 (07:20→20:07)
[2019-01-31] MEDS: atorvastatin 20mg tablet PO SCH (07:21)
[2019-01-31] MEDS: amLODIPine 5mg tablet PO SCH (07:21)
[2019-01-31] MEDS: budesonide 0.5mg/2ml UD nebule IH SCH ×2 (07:43→20:58)
[2019-01-31] MEDS: K and/or MAG REPLACEMENT MC SCH (08:00)
[2019-01-31] MEDS: heparin 25,000 UNIT/250ml bag 250 ML IV SCH (09:22)
[2019-01-31 10:00] VITALS: BP 127/66
--- NOTE | 2019-01-31 14:33 | NUR ---
O2 Sat at rest on room air:_88_% If below 89%: Recovery O2 Sat at rest on _3__LPM:__91_%:___% via_nasal cannula (mask/nasal cannula, etc..) No further documentation is necessary. If O2 Sat did not drop below 89% on room air,ambulate patient on room air. O2 Sat while ambulating on room air:___% Recovery O2 Sat while ambulating on ___LPM:___% No further documentation is necessary. If patient does not drop below 89% while ambulating, he/she does not qualify for home O2.
[2019-01-31 18:00] VITALS: BP 112/49
[2019-01-31] MEDS: apixaban 5mg tablet PO SCH (20:07)
[2019-01-31] MEDS: temazepam 15mg capsule PO PRN (20:09)
[2019-01-31 22:00] VITALS: BP 99/55
[2019-02-01] MEDS: albuterol 2.5 MG/3 ML nebule NEB SCH ×2 (02:30→08:17)
[2019-02-01] MEDS: HYDROcodone/acetaminophen 10/325mg tab PO PRN ×2 (05:23→13:09)
[2019-02-01 06:10] LABS: BASOPHILS % (AUTO) 0.3 % (0-1); EOSINOPHILS # (AUTO) 0.5 X10'3 (0-0.9); EOSINOPHILS % (AUTO) 6.3 % (0-6); HEMATOCRIT 36.1 % (42.0-52.0); LYMPHOCYTES # (AUTO) 0.8 X10'3 (1.1-4.8); LYMPHOCYTES % (AUTO) 9.6 % (21-51); MEAN CORPUSCULAR HEMOGLOBIN 31.2 PG (27.0-31.0); MEAN CORPUSCULAR HGB CONC 33.2 g/dL (33.0-36.5); MEAN CORPUSCULAR VOLUME 93.8 FL (78-98); MEAN PLATELET VOLUME 8.5 FL (7.4-10.4); MONOCYTES # (AUTO) 0.7 X10'3 (0-0.9); MONOCYTES % (AUTO) 8.8 % (2-12); PLATELET COUNT 289 X10'3 (140-440); RED BLOOD COUNT 3.84 X10'6 (4.70-6.10); RED CELL DISTRIBUTION WIDTH 12.9 % (11.5-14.5); WHITE BLOOD COUNT 7.9 X10'3 (4.5-11.0)
[2019-02-01 06:31] LABS: ALANINE AMINOTRANSFERASE 25 U/L (12-78); ALBUMIN 2.5 G/DL (3.4-5.0); ALBUMIN/GLOBULIN RATIO 0.7 (1.1-1.5); ALKALINE PHOSPHATASE 74 IU/L (46-116); ANION GAP 9 (8-16); ASPARTATE AMINO TRANSFERASE 30 U/L (10-37); BILIRUBIN,TOTAL 0.6 MG/DL (0.1-1.0); BLOOD UREA NITROGEN 11 MG/DL (7-18); BUN/CREATININE RATIO 8.9 (5.4-32.0); CALCIUM 8.6 MG/DL (8.5-10.1); CHLORIDE 103 MMOL/L (99-107); CREATININE 1.24 MG/DL (0.60-1.10); GLUCOSE 110 MG/DL (70-104); MAGNESIUM 1.9 MG/DL (1.5-2.4); POTASSIUM 3.9 MMOL/L (3.5-5.1); SODIUM 139 MMOL/L (135-145); TOTAL CARBON DIOXIDE 27.5 MMOL/L (24-32); TOTAL PROTEIN 6.1 G/DL (6.4-8.2); eGFR 56 ML/MIN
--- NOTE | 2019-02-01 06:44 | NUR ---
Problems reprioritized. Patient report given, questions answered & plan of care reviewed with MARAL QUINONES.
--- NOTE | 2019-02-01 06:47 | NUR ---
Patient in room ORTHO 4022. I have received report from MARAL ALMEIDA and had the opportunity to ask questions and assume patient care.
[2019-02-01 07:05] VITALS: BP 108/68
[2019-02-01] MEDS: docusate sod 100mg capsule PO SCH (07:50)
[2019-02-01] MEDS: apixaban 5mg tablet PO SCH (07:50)
[2019-02-01] MEDS: atorvastatin 20mg tablet PO SCH (07:50)
[2019-02-01] MEDS: amLODIPine 5mg tablet PO SCH (07:50)
[2019-02-01] MEDS: pantoprazole 40mg Tablet.DR PO SCH (07:50)
[2019-02-01] MEDS: K and/or MAG REPLACEMENT MC SCH (07:55)
[2019-02-01] MEDS: budesonide 0.5mg/2ml UD nebule IH SCH (08:18)
[2019-02-01 10:54] VITALS: BP 99/63
[2019-02-01] MEDS ORDERED: HYDR-3972 PO (11:02)
[2019-02-01] MEDS ORDERED: BUDE10.2 INH (11:02)
[2019-02-01] MEDS ORDERED: APIX5TAB3 PO (11:02)
[2019-02-01] MEDS ORDERED: FAMO20TA8 PO (11:07)
--- NOTE | 2019-02-01 11:56 | NUR ---
Initial: Pt admit w/ L leg DVT per MD note. PO 50% avg meals since admit decent given age but did refuse breakfast today. Noted LBM 5 days ago 01/26; receiving colace. MARICHUY d/w RN for additional bowel care per MD approval since pt is also receiving morphine. Constipation likely effecting PO as well. Will continue to monitor. Rec: 1. continue heart healthy 2. additional routine bowel care per MD given constipation 3. wt per rx Addendum: 02/01/19 at [address] Amended: Links added.
--- NOTE | 2019-02-01 12:40 | NUR ---
PATIENT A&O AND ASKED TO HAVE HIS FAMILY (SPOUSE, DAUGHTER AND X2 SONS) TO BE AT BEDSIDE DURING DISCHARGE TEACHING. DISCUSSED DISCHARGE TEACHING INCLUDING NEW PRESCRIPTIONS AND WHICH HOME MEDS TO DC PER DR GABRIEL. PATIENT AND FAMILY MEMBERS ALL VERBALIZE UNDERSTANDING OF TEACHING. PATIENT HAS PORTABLE O2 TANK AT BEDSIDE. INSTRUCTED PATIENT AND FAMILY USE OF O2 TANK. [facility] REP [employer] WHO DELIVERED O2 TANK SAID FOR PATIENT TO CALL THE NUMBER LISTED ON CARD HE HAD GIVEN TO PATIENT AND THAT A REP WOULD ALSO PROVIDE INSTRUCTIONS WELL. PATIENT AND FAMILY AWARE.
--- NOTE | 2019-02-01 12:51 | NUR ---
PRESCRIPTIONS CALLED IN TO [facility]. [facility] PRESCRIPTION GIVEN TO PATIENT. IV DC'D. PATIENT WANTING TO EAT BEFORE LEAVING.
--- NOTE | 2019-02-01 13:33 | NUR ---
PATIENT DC'D WITH ALL PERSONAL BELONGINGS AND PORTABLE 02 TANK ACCOMPANIED BY X1 STAFF, SON AND SPOUSE.
== END 2019-02-01 13:56 | disposition home health service (06) | DRG 252 ==
LOC: ER 07:27 → ORTHO 4S 13:45 → CMPBEDREQ 01-30 21:12
PROVIDERS: ADMIT Internal Medicine; ATTEND Family Medicine
PROC: 06H03DZ Insertion of Intraluminal Device into Inferior Vena Cava, Percutaneous Approach (ICD-10-PCS; principal; 2019-01-27)
PROC: B5191ZZ Fluoroscopy of Inferior Vena Cava using Low Osmolar Contrast (ICD-10-PCS; 2019-01-27)
PROC: B32T1ZZ Computerized Tomography (CT Scan) of Left Pulmonary Artery using Low Osmolar Contrast (ICD-10-PCS; 2019-01-27)
PROC: B3201ZZ Computerized Tomography (CT Scan) of Thoracic Aorta using Low Osmolar Contrast (ICD-10-PCS; 2019-01-27)
PROC: B32S1ZZ Computerized Tomography (CT Scan) of Right Pulmonary Artery using Low Osmolar Contrast (ICD-10-PCS; 2019-01-27)
DX: I82.433 Acute embolism and thrombosis of popliteal vein, bilateral (principal); I26.99 Other pulmonary embolism without acute cor pulmonale; I13.0 Hypertensive heart and chronic kidney disease with heart failure and stage 1 through stage 4 chronic kidney disease, or unspecified chronic kidney disease; N17.9 Acute kidney failure, unspecified; I27.81 Cor pulmonale (chronic); I48.2 Chronic atrial fibrillation; R06.03 Acute respiratory distress; E78.00 Pure hypercholesterolemia, unspecified; I50.9 Heart failure, unspecified; N18.9 Chronic kidney disease, unspecified; I25.10 Atherosclerotic heart disease of native coronary artery without angina pectoris; E78.5 Hyperlipidemia, unspecified; R09.02 Hypoxemia; Z79.01 Long term (current) use of anticoagulants; Z79.51 Long term (current) use of inhaled steroids; Z87.891 Personal history of nicotine dependence; Z79.899 Other long term (current) drug therapy
CPT/HCPCS: 36415; 37191; 71046; 71275; 80053; 81001; 83735; 85025; 85610; 85730; 87081; 93306; 93970; 94640; 94760; 96365; 96376; 99285; C1769; C1880; C1894; G0378; J1644; J2270; J3010; J7030; J7626; Q9967